=== PATIENT | male | born 1960 | race Caucasian/White ===

== ENCOUNTER 2019-07-12 06:48 | Outpatient (CLI) | payer BC, OTHER ==
[~2019-07-12] VITALS: Ht 175.3 cm; Wt 138.3 kg
[2019-07-12] VITALS (10 sets, daily range): BP systolic 120–152; BP diastolic 69–80
[2019-07-12 07:25] LABS: HEMATOCRIT 46.4 % (39.0-53.0); HEMOGLOBIN 15.7 g/dL (13.0-17.5); RED BLOOD COUNT 4.81 x10^6/uL (4.30-5.70); RED CELL DISTRIBUTION WIDTH 13.2 % (11.5-14.5)
[2019-07-12] MEDS ORDERED: LEVO25TA4 PO (07:30)
[2019-07-12] MEDS ORDERED: ATOR40TA59 PO (07:30)
[2019-07-12] MEDS ORDERED: SACU1TAB PO (07:30)
[2019-07-12] MEDS ORDERED: CARB1TAB2 PO (07:30)
[2019-07-12] MEDS ORDERED: CARV6.2511 PO (07:30)
[2019-07-12] MEDS ORDERED: FLUT1BLS3 IH (07:30)
[2019-07-12] MEDS ORDERED: ALBU2.5V8 IH (07:30)
[2019-07-12] MEDS ORDERED: CITA20TA9 PO (07:30)
[2019-07-12] MEDS ORDERED: ASPI-630 PO (07:30)
[2019-07-12] MEDS ORDERED: LIDOCAINE 1% Multi-Dose 20 ML VIAL. ONE (07:39)
[2019-07-12] MEDS ORDERED: IODIXANOL 320 MG/ML 100 ML VIAL. ONE (07:39)
[2019-07-12 07:42] LABS: CALCIUM 8.9 mg/dL (8.5-10.1); CREATININE 1.1 mg/dL (0.7-1.3); GFR 68.3; POTASSIUM 5.3 mmol/L (3.5-5.1)
[2019-07-12] MEDS ORDERED: MIDAZOLAM HCL/PF 2 MG/2 ML VIAL. ONE (08:22)
[2019-07-12] MEDS ORDERED: LIDOCAINE 1% Multi-Dose 20 ML VIAL. INJ ONE (09:00)
[2019-07-12] MEDS ORDERED: IODIXANOL 320 MG/ML 100 ML VIAL. IART ONE (09:00)
[2019-07-12] MEDS ORDERED: MIDAZOLAM HCL/PF 2 MG/2 ML VIAL. IV ONE (09:00)
[2019-07-12] MEDS ORDERED: CONTRAST GIVEN. MC PRN (09:15)
[2019-07-12] MEDS ORDERED: IV NORMAL SALINE 1000ML BAG 1,000 ML IV SCH (09:21)
[2019-07-12] MEDS ORDERED: NITROGLYCERIN SUBLINGUAL 0.4 MG BOTTLE OF 25. SL PRN (09:30)
[2019-07-12] MEDS ORDERED: ACETAMINOPHEN 325 MG TABLET. PO PRN (09:30)
[2019-07-12] MEDS ORDERED: 0.9 % SODIUM CHLORIDE 10 ML DISP.SYRIN. IV PRN (09:30)
--- NOTE | 2019-07-12 09:34 | DISCH ---
DISCHARGE INSTRUCTIONS Activity After Discharge Activity Instructions for Disc: Avoid exertion Other activity instructions: no straining for 48 hours Diet after Discharge Diet after Discharge: Cardiac, Low Sodium 4 gm Checks after Discharge Checks after discharge: Check blood press - daily, Weigh Yourself Daily Contacting the DRWaldemar after DC Call your doctor for: Concerns you may have Follow-Up Follow up with: office will schedule followup if not already have one Treatment/Equipment after DC Adaptive Equipment Issued: None FABI ESTRELLA MD Jul 12, 2019 09:34
--- NOTE | 2019-07-12 11:30 | NUR ---
Pt completed 2 hour recovery flat, pt head of bed up to 45 degrees. Groin remains dry and intact. JKAE DONALDSON Addendum: 07/12/19 at 1135 by MARYANN CARDOSO RN Amended: Links added. Addendum: 07/12/19 at 1148 by MARYANN CARDOSO RN Groin site remains dry and intact, Pt dressing to leave. JAKE DONALDSON
--- NOTE | 2019-07-12 11:45 | NUR ---
Discharge Note: JOSE VILLEGAS Discharge instructions and discharge home medications reviewed with Patient and a copy given. All questions have been answered and understanding verbalized. Dressing to R groin dry and intact. The following instructions and handouts were given: sedation, groin site care, angiogram, cardiac rehab, cardiomyopathy. Mynx instruction sheet given Discontinued lines and drains: Peripheral IV intact. Patient discharged to Home or Self Care with Family Member via Wheelchair
--- NOTE | 2019-07-26 11:43 | CARD ---
MR#: [id number] Date of Study: 07/12/2019 Ordering Physician: FABI OAKES, Referring Physician: FABI OAKES, Tech: SURAJ BRADEN RTR APPROVED REPORT Technologist: SURAJ BRADEN RTR Nurse: Page June R.N. Procedure(s) performed: 1. Right and left heart catheterization 2. Selective coronary angiography 3. Supervision of conscious sedation MODERATE SEDATION TIME: 54 MINUTES FLUORO TIME: 3.5 MIN DOSE: 99.6 GYCM2 CONTRAST: 60CC VISI HISTORY previous CHF: tobacco history() , hypertension. INDICATION The indication(s) include : positive stress test, dyspnea. [facility] Clinical Frailty Scale [facility] Clinical Frailty Scale: Vulnerable Heart Failure Heart Failure: Yes If Yes, Newly Diagnosed: Yes If Yes, HF Type: Systolic If Yes, NYHA Class: Class III CASE TECHNIQUE The patient was brought electively into the cardiac catheterization lab. A timeout was performed conf irming the patient's name, date of , procedure, and site of procedure. All necessary parties wer e wearing the appropriate personal protective equipment and radiation monitoring devices. After expla ining the risks and benefits of the procedure, informed consent was obtained.(See nursing notes for m edications administered). The right groin was sterilely prepped and draped. The right femoral groin w as infiltrated with 1% Lidocaine subcutaneous anesthesia. During this case, Fluoroscopy standard cont rast were used for imaging. A 4 Bangl[place]hi sheath was inserted into the right femoral artery without diff iculty. Coronary angiography was performed using coronary diagnostic catheters. The left coronary sys tem was accessed and visualized with a Diagnostic catheter. The right coronary system was accessed an d visualized with a Diagnostic catheter. The left ventricle was accessed and visualized with a Diagno stic catheter. Left ventricular/Aortic Valve gradient assessed on pullback. Hemostasis was obtained w ith manual pressure following sheath removal without any complications. The patient tolerated the pro cedure well and there were no complications associated with the procedure. Coronary Angiography The patient's coronary anatomy is right dominant. The left main coronary artery is a large size vessel without significant stenosis which bifurcates in the left anterior descending left circumflex coronary arteries.. The left anterior descending artery is a medium size vessel coursing along the anterior interventricu lar sulcus giving rise to septal and diagonal branches. Distal third tapers rapidly and there is a mi ld area of stenosis after the distal diagonal origin as it then proceeds with the apex and terminates as a small caliber vessel. The circumflex artery is a Jurgen medium size vessel seen in the AV groove giving rest a small first m arginal branch and a proceeding to the lateral posterior wall where it has a small to moderate calibe r marginal vessel noted. There is luminal irregularities present throughout the entire circumflex and the marginal branches. The first obtuse marginal branch is a small-caliber vessel with luminal irreg ularities noted size vessel . The second obtuse marginal branch is a small to moderate caliber vessel with luminal irregularities noted as it reaches towards the apex size vessel . The right coronary artery is a moderate to large size vessel coursing in the AV groove to the acute m argin giving rise to small RA and RV branches. The vessel then continues on to the crux of the heart rate is rise to moderate caliber posterior descending artery that reaches to the apex supplying the i nferoapical wall there is a proximal 30% plaque noted and pulmonary irregularities beyond this but no high-grade obstructive lesions. Left Ventriculography There was no gradient across the aortic valve upon pullback. Conclusion 1. Mild nonobstructive coronary artery disease consisting of luminal irregularities of less than 30% 2. Normal right-sided pressures and hemodynamics 3. Mildly elevated left ventricular end-diastolic pressures Recommendations Medical Therapy Continuation of optimize ration of guidelines directed medical therapy for cardiomyopathy and congest nikko heart failure Signed by : Fabi Oakes, Electronically Approved : 07/26/2019 11:43:08
== END 2019-07-12 11:45 | disposition home or self-care (01) ==
LOC: CCL 06:48
PROVIDERS: ATTEND Internal Medicine
DX: R06.00 Dyspnea, unspecified (principal); I25.10 Atherosclerotic heart disease of native coronary artery without angina pectoris; I10 Essential (primary) hypertension; Z79.01 Long term (current) use of anticoagulants; Z87.891 Personal history of nicotine dependence
CPT/HCPCS: 36415; 80048; 85027; 85610; 93460; 99152; 99153; C1713; C1769; C1773; C1892; J1644; J2250; J3490; Q9967; G0269